=== PATIENT | female | born 2000 | race Caucasian/White ===

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

== ENCOUNTER → 2022-01-21 | Outpatient (CLI) | payer OTHER | LOC: KOH-I 11:00 → US 11:00 | DX: E06.3 Autoimmune thyroiditis (principal) | CPT/HCPCS: 76536 ==